=== PATIENT | female | born 1950 | race Caucasian/White ===

== ENCOUNTER 2016-03-20 15:10 | Emergency (ER) | payer MEDICARE, OTHER ==
[~2016-03-20] VITALS: Ht 166.4 cm; Wt 65.0 kg
[2016-03-20 15:14] VITALS: BP 116/75; PULSE 113; RESP 16; TEMP 98.3; O2SAT 96
[2016-03-20] MEDS ORDERED: SODIUM CHLORIDE 0.9% FLUSH 5 ML FLUSH IVF PRN (15:30)
[2016-03-20] MEDS ORDERED: RANI150T PO (15:31)
[2016-03-20] MEDS ORDERED: PROZ40CA PO (15:31)
[2016-03-20] MEDS ORDERED: ASPI81CH CHEW (15:31)
[2016-03-20] MEDS ORDERED: CHON150C PO (15:34)
[2016-03-20] MEDS ORDERED: GLUC15009 PO (15:34)
[2016-03-20] MEDS ORDERED: CALC1TAB87 PO (15:34)
--- NOTE | 2016-03-20 15:36 | PD ---
HPI Chief Complaint: GI Complaint Time Seen by Provider: 15:33 Travel History International Travel<30 days: No Contact w/Intl Traveler<30days: No Traveled to known affect area: No History of Present Illness HPI 65-year-old female with history of pancreatitis, gastroesophageal reflux, presents to the ER today because she is having 4 days history of nausea, vomiting, diarrhea, fatigue, 4 out of 10 and crampy abdominal pain and dizziness. She has not been able to keep much down according to her . They deny any sick contacts or no better food exposure. She has vomited about 4 times today already. Modifying Factors: None Associated Signs & Symptoms: Nausea, vomiting, diarrhea, abdominal cramping Risk Factors: None PFSH Past Medical History GERD: Yes Pancreatitis: Yes ("YEARS AGO") LMP: MENOPAUSAL Social History Alcohol Use: No Tobacco Use: Yes (3 cigs/DAILY) Allergies-Medications (Allergen,Severity, Reaction): Coded Allergies: No Known Allergies (Unverified , 03/20/16) Reported Meds & Prescriptions Reported Meds & Active Scripts Active Reported Glucosamine 1,500 Mg Tab 1,500 Mg PO BID Chondroitin Sulfate 150 Mg Cap 1,200 Mg PO DAILY Calcium 600 with Vitamin D (Calcium Carbonate-Cholecalciferol) 600-400 mg-Unit Tab 1 Tab PO DAILY Prozac (Fluoxetine HCl) 40 Mg Cap 40 Mg PO DAILY Ranitidine (Ranitidine HCl) 150 Mg Tab 150 Mg PO BID Aspirin 81 Mg Chew 81 Mg CHEW DAILY Review of Systems Except as stated in HPI: all other systems reviewed are Neg Physical Exam Narrative GENERAL: Well-nourished, well-developed elderly white female patient in no acute distress. SKIN: Warm and dry. HEAD: Normocephalic. EYES: No scleral icterus. No injection or drainage. NECK: Supple, trachea midline. CARDIOVASCULAR: Regular rate and rhythm without murmurs, gallops, or rubs. RESPIRATORY: Breath sounds equal bilaterally. No accessory muscle use. GASTROINTESTINAL: Abdomen soft, non-tender, nondistended. Benign. MUSCULOSKELETAL: No cyanosis, or edema. BACK: Nontender without obvious deformity. No CVA tenderness. Data Data Last Documented VS Vital Signs Date Time Temp Pulse Resp B/P Pulse Ox O2 Delivery O2 Flow Rate FiO2 03/20/16 15:47 99 Room Air 03/20/16 15:14 98.3 113 16 116/75 Orders Complete Blood Count With Diff (03/20/16 15:27) Comprehensive Metabolic Panel (03/20/16 15:27) Lipase (03/20/16 15:27) Urinalysis - C+S If Indicated (03/20/16 15:27) Iv Access Insert/Monitor (03/20/16 15:27) Ecg Monitoring (03/20/16 15:27) Oximetry (03/20/16 15:27) Sodium Chloride 0.9% Flush (Ns Flush) (03/20/16 15:30) Sodium Chlor 0.9% 1000 Ml Inj (Ns 1000 M (03/20/16 15:45) Ondansetron Inj (Zofran Inj) (03/20/16 15:45) Promethazine Inj (Phenergan Inj) (03/20/16 17:30) Labs Laboratory Tests Test 03/20/16 03/20/16 15:40 16:47 White Blood Count 8.7 TH/MM3 Red Blood Count 4.14 MIL/MM3 Hemoglobin 13.1 GM/DL Hematocrit 38.0 % Mean Corpuscular Volume 91.8 FL Mean Corpuscular Hemoglobin 31.6 PG Mean Corpuscular Hemoglobin 34.4 % Concent Red Cell Distribution Width 12.6 % Platelet Count 212 TH/MM3 Mean Platelet Volume 8.2 FL Neutrophils (%) (Auto) 73.6 % Lymphocytes (%) (Auto) 18.6 % Monocytes (%) (Auto) 6.7 % Eosinophils (%) (Auto) 0.6 % Basophils (%) (Auto) 0.5 % Neutrophils # (Auto) 6.4 TH/MM3 Lymphocytes # (Auto) 1.6 TH/MM3 Monocytes # (Auto) 0.6 TH/MM3 Eosinophils # (Auto) 0.1 TH/MM3 Basophils # (Auto) 0.0 TH/MM3 CBC Comment DIFF FINAL Differential Comment Sodium Level 141 MEQ/L Potassium Level 4.1 MEQ/L Chloride Level 102 MEQ/L Carbon Dioxide Level 30.0 MEQ/L Anion Gap 9 MEQ/L Blood Urea Nitrogen 10 MG/DL Creatinine 0.73 MG/DL Estimat Glomerular Filtration 80 ML/MIN Rate Random Glucose 123 MG/DL Calcium Level 9.3 MG/DL Total Bilirubin 0.4 MG/DL Aspartate Amino Transf 18 U/L (AST/SGOT) Alanine Aminotransferase 21 U/L (ALT/SGPT) Alkaline Phosphatase 72 U/L Total Protein 7.3 GM/DL Albumin 3.6 GM/DL Lipase 66 U/L Urine Collection Type CLEAN CATCH Urine Color YELLOW Urine Turbidity CLEAR Urine pH 7.0 Urine Specific [place] 1.017 Urine Protein TRACE mg/dL Urine Glucose (UA) NEG mg/dL Urine Ketones NEG mg/dL Urine Occult Blood MOD Urine Nitrite NEG Urine Bilirubin NEG Urine Leukocyte Esterase NEG Urine RBC 10-14 /hpf Urine WBC 0-2 /hpf Urine Squamous Epithelial 0-5 /hpf Cells Microscopic Urinalysis Comment CULT NOT INDICATED Urine Collection Time 16:47 [facility] Medical Decision Making Medical Screen Exam Complete: Yes Emergency Medical Condition: Yes Medical Record Reviewed: Yes Interpretation(s) Laboratory Tests Test 03/20/16 03/20/16 15:40 16:47 Neutrophils (%) (Auto) 73.6 % (16.0-70.0) Estimat Glomerular Filtration 80 ML/MIN (>89) Rate Random Glucose 123 MG/DL (74-106) Lipase 66 U/L (73-393) Urine Occult Blood MOD (NEG) Urine RBC 10-14 /hpf (0-3) Differential Diagnosis Nausea, vomiting, abdominal pains, diarrheagastroenteritis versus pancreatitis versus dehydration versus metabolic issues Narrative Course Abdomen is benign and I do not suspect an acute intra-abdominal process. Lab work has been reviewed and shows no significant signs of dehydration or metabolic issues. She does not have the flu. At this point, patient has been given IV fluids and anti-medics. Her heart rate has come down nicely and she is appearing more comfortable. My plan would be to release her with follow-up to primary care physician as necessary. We will give her further symptomatic relief for nausea and vomiting. Return as needed for any worsening symptoms. The plan has discussed with patient and she states understanding. Diagnosis Primary Impression: INFECTIOUS GASTROENTERITIS AND COLITIS, UNSPECIFIED Med/Other Pt SpecificInfo: Prescription(s) given Scripts Ondansetron Odt (Zofran Odt)4 Mg Tab4 Mg SL Q6HR PRN (Nausea/Vomiting) #5 TAB Ref 0 Prov:Kali Holley MD 03/20/16 Disposition: 01 DISCHARGE HOME Condition: Stable Kali Holley MD Mar 20, 2016 15:35
[2016-03-20] MEDS ORDERED: ONDANSETRON HCL 4 MG/2 ML VIAL IV PUSH ONE (15:45)
[2016-03-20] MEDS ORDERED: SODIUM CHLOR 0.9% 1000 ML INJ 1,000 ML IV ONE (15:45)
[2016-03-20 15:47] VITALS: O2SAT 99
[2016-03-20 15:55] LABS: AUTOMATED NEUTROPHIL # 6.4 TH/MM3 (1.8-7.7); BASOPHIL % 0.5 % (0.0-2.0); EOSINOPHIL # 0.1 TH/MM3 (0-0.4); EOSINOPHIL % 0.6 % (0.0-4.0); HEMO FLAGS DIFF FINAL; LYMPH % 18.6 % (9.0-44.0); LYMPHOCYTE # 1.6 TH/MM3 (1.0-4.8); MEAN CELL VOLUME 91.8 FL (80.0-100.0); MEAN CORPUSCULAR HEMOGLOBIN 31.6 PG (27.0-34.0); MEAN CORPUSCULAR HGB CONC 34.4 % (32.0-36.0); MONO % 6.7 % (0.0-8.0); NEUT % 73.6 % (16.0-70.0); PLATELET COUNT 212 TH/MM3 (150-450); RED BLOOD COUNT 4.14 MIL/MM3 (4.00-5.30); RED CELL DISTRIBUTION WIDTH 12.6 % (11.6-17.2); WHITE BLOOD COUNT 8.7 TH/MM3 (4.0-11.0)
[2016-03-20 16:07] LABS: CHLORIDE 102 MEQ/L (98-107); POTASSIUM 4.1 MEQ/L (3.5-5.1); SODIUM (NA) 141 MEQ/L (136-145)
[2016-03-20 16:12] LABS: ANION GAP 9 MEQ/L (5-15); BLOOD UREA NITROGEN 10 MG/DL (7-18)
[2016-03-20 16:15] LABS: ALT (GPT) 21 U/L (10-53); AST (GOT) 18 U/L (15-37); GLOMERULAR FILTRATION RATE 80 ML/MIN (>89)
[2016-03-20 16:16] LABS: TOTAL BILIRUBIN ADULT 0.4 MG/DL (0.2-1.0)
[2016-03-20 16:18] LABS: ALKALINE PHOSPHATASE 72 U/L (45-117)
[2016-03-20 17:02] LABS: GLUCOSE,URINE NEG (NEG); KETONE, URINE NEG (NEG); NITRITE,URINE NEG (NEG)
[2016-03-20 17:07] LABS: BLOOD, URINE MOD (NEG)
[2016-03-20 17:09] LABS: METHOD OF COLLECTION CLEAN CATCH; URINE COLOR YELLOW (YELLW/STRAW)
[2016-03-20 17:10] LABS: COMMENT (UR) CULT NOT INDICATED; CULTURE IF INDICATED CULT NOT INDICATED; SQUAMOUS EPITHELIAL CELL URINE 0-5 /hpf (0-5); WBC, URINE 0-2 /hpf (0-5)
[2016-03-20] MEDS ORDERED: ZOFR4TAB3 SL (17:25)
[2016-03-20] MEDS ORDERED: PROMETHAZINE INJ 25 MG/ML VIAL IM ONE (17:30)
== END 2016-03-20 17:44 | disposition home or self-care (01) ==
LOC: PHED 15:10
DX: A09 Infectious gastroenteritis and colitis, unspecified (principal); R10.9 Unspecified abdominal pain; R42 Dizziness and giddiness; R53.83 Other fatigue; Z72.0 Tobacco use; Z87.19 Personal history of other diseases of the digestive system
CPT/HCPCS: 80053; 81001; 83690; 85025; 96361; 96372; 96374; 99284; J2405; J2550; J7030